=== PATIENT | female | born 1995 | race Caucasian/White ===

== ENCOUNTER → 2016-12-17 | Outpatient (CLI) | payer OTHER ==
[~2016-12-17] MED LIST: PRENTAB26 PO
== END | disposition home or self-care (01) ==
LOC: C.LABSPEC 15:00
PROVIDERS: ATTEND Obstetrics & Gynecology
DX: Z34.03 Encounter for supervision of normal first pregnancy, third trimester (principal)

== ENCOUNTER 2016-12-22 13:56 | Outpatient (CLI) | payer OTHER ==
--- NOTE | 2016-12-25 07:45 | EDITING REQUIRED CODING QUERY ---
DIAGNOSIS NEEDED To promote full compliance with coding requirements relating to patient care, physician participation is requested in all cases of medical biller coder uncertainty. Please assist us with the question(s) below: Coding Question: The patient received care in labor and delivery on 12/3116 as noted within the record. Please document the diagnosis that is being addressed by the medication/treatment. Provider Response: DIAGNOSIS:false labor WEEKS GESTATION: 37 weeks Thank you for your assistance, Deandra Kirkpatrick - Dip Brazier
== END 2016-12-22 16:07 | disposition home health service (06) ==
LOC: C.OPB 13:56 → C.LD 14:00 → C.OPB 16:07
PROVIDERS: ATTEND Obstetrics & Gynecology
DX: Z34.03 Encounter for supervision of normal first pregnancy, third trimester (principal)

== ENCOUNTER 2017-01-14 16:09 | Inpatient (IN) | payer OTHER ==
[~2017-01-14] VITALS: Ht 149.9 cm; Wt 79.1 kg
[2017-01-15] MEDS ORDERED: LACTATED RINGER'S 1000ML 1,000 ML IV PRN (08:09)
[2017-01-15] MEDS ORDERED: LACTATED RINGER'S 1000ML 1,000 ML IV SCH (08:09)
[2017-01-15] MEDS ORDERED: MISOPROSTOLTAB 50 MCG TAB PO ONE (08:15)
[2017-01-15 09:14] LABS: HEMATOCRIT 32.2 % (37-47); MEAN CORPUSCULAR HEMOGLOBIN 28.5 pg (25-34); MEAN CORPUSCULAR HGB CONC 33.5 g/dl (32-36); MEAN PLATELET VOLUME 10.7 fL (7.4-10.4); PLATELET COUNT 273 K/uL (130-400); RED BLOOD COUNT 3.79 M/uL (4.2-5.4); WHITE BLOOD COUNT 12.62 K/uL (4.8-10.8)
[2017-01-15] MEDS ORDERED: PRENTAB26 PO (09:58)
[2017-01-15 10:29] VITALS: Ht 149.9 cm; Wt 79.1 kg
[2017-01-15] MEDS ORDERED: BUPIVACAINE 0.25% 30 ML VIAL ONE (12:24)
[2017-01-15] MEDS ORDERED: EpHEDrine SULFATE INJ 50 MG/ML AMP ONE (12:24)
[2017-01-15] MEDS ORDERED: FENTANYL 2MCG/ML ROPIV 1.25MG/ML 100ML BAG EPI ONE (12:24)
[2017-01-15] MEDS ORDERED: FENTANYL CITRATE INJ 50 MCG/1 ML 2 ML VIAL ONE ×2 (12:25→13:34)
[2017-01-15] MEDS ORDERED: LACTATED RINGER'S 1000ML 500 ML IV PRN ×2 (13:37→13:53)
[2017-01-15] MEDS ORDERED: NALOXONE HCL INJ 1 MG in SODIUM CHLORIDE 0.9% 1000ML 1,000 ML IV PRN (13:37)
--- NOTE | 2017-01-15 13:40 | Anesthesiology Progress Note ---
Anesthesia Progress Note Date of Service Jan 15, 2017. Progress Notes Ms. Bergeron endorsed a childhood history of spina bifida. She stated it was "mild" and never required any sort of surgery. She denied any pre-existing neurological dysfunction and stated she had full muscle strength of her lower extremities and denied any gait disturbances. Risks and benefits of the epidural were discussed and she is aware of higher risk of dural puncture or possibly new neurological problem. She agreed and wished for epidural for control of pain during her labor and delivery.
[2017-01-15] MEDS ORDERED: FENTANYL 2MCG/ML ROPIV 1.25MG/ML 100ML BAG EPI PRN (13:45)
[2017-01-15] MEDS ORDERED: ONDANSETRON INJ 2 MG/ML 2 ML VIAL IV PRN (13:45)
[2017-01-15] MEDS ORDERED: EpHEDrine SULFATE INJ 50 MG/ML AMP IV PRN (13:45)
[2017-01-15] MEDS ORDERED: NALOXONE HCL 0.4 MG/1 ML VIAL/CARP IV PRN (13:45)
[2017-01-15] MEDS ORDERED: DiphenhydrAMINE HCL 50 MG/ML VIAL IV PRN (13:45)
[2017-01-15] MEDS ORDERED: NALBUPHINE HCL INJ 10 MG/ML AMP IV PRN (13:45)
[2017-01-15] MEDS ORDERED: OXYTOCIN 30 UNITS/500ML NSS IV PRN ×2 (14:00→17:45)
[2017-01-15] MEDS ORDERED: SILVER NITR/POTASSIUM NITRATE 10 APPLICATOR PACK ONE (16:42)
[2017-01-15] MEDS ORDERED: METHYLERGONOVINE MALEATE 0.2 MG/ML AMP ONE (16:57)
[2017-01-15] MEDS ORDERED: METHYLERGONOVINE MALEATE 0.2 MG/ML AMP IM ONE (17:45)
[2017-01-15] MEDS ORDERED: ACETAMINOPHEN/CODEINE 300/30MG TAB PO PRN ×2 (17:45)
[2017-01-15] MEDS ORDERED: LANOLIN OINT EXT PRN ×2 (17:45)
[2017-01-15] MEDS ORDERED: HYDROCORTISONE ACETATE 25 MG SUPP PR PRN (17:45)
[2017-01-15] MEDS ORDERED: SUPERCREAM 0.870 % 15GM JAR EXT PRN (17:45)
[2017-01-15] MEDS ORDERED: DIPHTHERIA/TETANUS/PERTUSSIS 0.5 ML SYR/VIAL IM. ONE (17:45)
[2017-01-15] MEDS ORDERED: OXYCODONE/ACETAMINOPHEN 5-325 TAB PO PRN (17:45)
[2017-01-15] MEDS ORDERED: BENZOCAINE 20% AER SPR 82.5 GM CAN EXT PRN (17:45)
[2017-01-15] MEDS: CEFOXITIN IV 2,000 MG in DEXTROSE 5% 50ML 50 ML IV SCH ×2 (18:45→23:35)
--- NOTE | 2017-01-15 19:04 | Anesthesia Procedure Note ---
Anesthesia Epidural Removal Nt Date & Time Jan 15, 2017 at 19:04 Vital Signs Pain Intensity: 6.0 Notes Mental Status: alert / awake / arousable, participated in evaluation Nausea / Vomiting: adequately controlled Pain: adequately controlled Airway Patency, RR, SpO2: stable & adequate BP & HR: stable & adequate Hydration State: stable & adequate Neuraxial Anesthesia: was administered, sensory block is resolving Anesthetic Complications: no major complications apparent, pt satisfied with anesthetic care Epidural: removed without complications, with tip intact
[2017-01-15] MEDS: DOCUSATE SODIUM 100 MG CAP PO SCH (20:49)
[2017-01-15] MEDS: IBUPROFEN 600 MG TAB PO PRN (20:49)
[2017-01-15] MEDS: ACETAMINOPHEN 325 MG TAB PO PRN (23:35)
[2017-01-16] VITALS: BP 115/69; PULSE 82; TEMP 36.7
--- NOTE | 2017-01-16 00:20 | DELIVERY SUMMARY ---
DATE OF OPERATION: 01/15/2017 This is a 21-year-old 1, para 1, who had the majority of her care in [place]. Her due date is 01/11/2017 and my first visit with her was on 12/17/2016. She was brought in for induction being over her expected date of confinement. Her blood type is O positive, rubella immune, strep screen negative. On the day of admission, she was placed on a monitor. She had good heart rate tracing. She was given Cytotec 5 mcg p.o. and with that she went into labor. When she was about 5-6 cm, she requested and received epidural anesthesia from which she obtained good pain relief. Membranes ruptured surgically. There was light meconium. She went to full dilatation, pushed out a live female infant in the MIKEL over an intact perineum in about 45 minutes. After delivery of the head, while I tried to suction through the mouth, I could not get my fingers through the end of the mouth. I then suctioned through the nose and went ahead and delivered the , clamped and then cut the cord. We immediately took the over to the warmer, where it was discovered that she had a fusion of the jaw to the upper palate. She had a fair amount of bleeding. I gave IV Pitocin and IM Methergine. She had a large sulcus laceration just to the left of the midline. I identified the top of the sulcus laceration and sewed it with a continuous interlocking suture of heavy Vicryl. This created relatively good hemostasis. I palpated the defect. It was quite large. I resewed the sulcus laceration for better approximation and hemostasis. I placed a quarter-inch drain into the defect and then sutured the perineum. I used an interrupted suture of heavy Vicryl to approximate the bulbocavernosus muscle. I used 3 interrupted sutures of heavy duty Vicryl to approximate the perineal body. The rectal sphincter was intact. After this, I used a running subcuticular suture to approximate the perineal skin edges and sewed the drain to the perineum with a loop of 2-0 Vicryl. Following this, I did a vag exam which revealed no sponges or hematoma formation and I did 2 rectal examinations to make sure that there were no stitches through the rectal mucosa. Following this, hemostasis was good. The patient tolerated the procedure well. I attest to the content of the Intraoperative Record and any orders documented therein. Any exception s are noted below.
[2017-01-16 03:40] VITALS: BP 101/66; PULSE 99; TEMP 36.4
[2017-01-16] MEDS: IBUPROFEN 600 MG TAB PO PRN ×2 (03:45→14:32)
[2017-01-16] MEDS: CEFOXITIN IV 2,000 MG in DEXTROSE 5% 50ML 50 ML IV SCH ×2 (06:36→12:18)
[2017-01-16] MEDS: ACETAMINOPHEN 325 MG TAB PO PRN (06:37)
[2017-01-16 07:45] VITALS: BP 113/73; PULSE 91; TEMP 36.5
[2017-01-16 07:53] LABS: HEMATOCRIT 27.4 % (37-47)
[2017-01-16] MEDS ORDERED: FERROUS SULFATE 325 MG TAB PO SCH (08:00)
[2017-01-16] MEDS ORDERED: PRENATAL VITAMIN TAB PO SCH (08:00)
[2017-01-16] MEDS: DOCUSATE SODIUM 100 MG CAP PO SCH (08:09)
--- NOTE | 2017-01-16 09:05 | Progress Note ---
Subjective Jan 16, 2017. Subjective conversation w/ patient Ambulation: ambulating normally Voiding: no voiding problems Passing Gas: Yes Diet Tolerance: Regular Diet Lochia: Small Review of Systems Constitutional: + fever Objective Vital Signs Date Time Temp Pulse Resp B/P (MAP) Pulse Ox O2 Delivery O2 Flow Rate FiO2 01/16/17 03:40 36.4 99 18 101/66 (78) Room Air 01/16/17 00:00 Room Air 01/16/17 00:00 36.7 82 18 115/69 (84) Room Air Physical Exam General Appearance: WELL-APPEARING Abdomen: non tender Fundus: Firm, Non-Tender Extremities: no pedal edema, no calf tenderness Laboratory Results Last 24 Hours Test 01/16/17 07:04 Hemoglobin 9.3 g/dL Hematocrit 27.4 % Assessment and Plan Post- Day#: 1 Continue Routine Care: Hgb 9.3 no symptoms
--- NOTE | 2017-01-16 09:08 | Discharge Instructions ---
Discharge Instructions Date of Service Jan 16, 2017. Admission Reason for Admission: Induction Discharge Discharge Diagnosis / Problem: large left sulcus tear post operative Hgb 9 Discharge Goals Goal(s): Routine recovery after delivery Activity Recommendations Activity Limitations: as noted below ACTIVITY RECOMMENDATIONS: * Gradual return to full activity over the next 2-3 weeks. * No lifting - nothing heavier than baby over the next 2-3 weeks. * Do not engage in vigorous exercise, sexual activity or sports until cleared by your physician. * Do not drive or operate any motorized equipment until cleared by your physician. * You may shower/bathe daily. DIET: Resume Previous Diet If Breast-feeding: * Increase caloric intake by 500 calories, eat 3 well balanced meals, 2 high protein snacks a day and drink 6-8 8oz. glasses of fluid per day. BREAST CARE: If you are not breast feeding: * Wear a supportive bra 24 hours a day for one to two weeks. * Avoid stimulating your breasts and nipples as much as possible during the first few weeks after delivery. * When taking a shower, have the warm water hit your back, not breasts. * When your breasts feel full, apply ice packs. Usually three to four times a day helps ease the discomfort. * Take a mild pain medication (Tylenol / Motrin) when you are uncomfortable. If breast feeding: * Use breast milk to lubricate nipples. Lansinoh cream may be used for sore nipples. You do not need to remove cream prior to breast feeding. If using a different brand of cream, check the label for directions regarding removal of cream prior to nursing. * Wear a supportive bra. * If having problems with breasts or breast feeding, call a domestic travel consultant or your health care provider. OVER THE COUNTER MEDICATION: * For discomfort or pain, you may use Acetaminophen (Tylenol), Ibuprofen (Advil ), or Naproxen (Aleve) following the package directions. * For constipation you may use Colace following the package directions. SPECIAL CARE INSTRUCTIONS: * Vaginal rest (no tampons, douching, intercourse) until after doctor 's visit. * control as discussed with doctor. * Verbalizes understanding of car seat law as reviewed with patient nursing. * Car Seat hand-out given and reviewed with patient by nursing. * Shaken baby information reviewed with patient by nursing. Call you doctor if: * Temperature greater than or equal to 100.4 degrees F or 38.0 degrees C. Take your temperature twice daily for a week. * Bleeding becomes heavier than the heaviest part of your period - saturating a sanitary pad within an hour. * Passing large clots. * Bleeding has a foul smelling odor. * Signs and symptoms of phlebitis: leg pain, warm, red or swollen area on leg. * "Baby Blues" lasting longer than two weeks. ++ If you have had a and incision has increased pain, redness, swelling, presence of any drainage, or if the incision starts to open up. If you have any questions or concerns, call your health care practitioner at [phone]. FOLLOW-UP VISIT: Please call the office at to schedule a 6 week examination. . Instructions / Follow-Up Instructions / Follow-Up ACTIVITY RECOMMENDATIONS: * Gradual return to full activity over the next 2-3 weeks. * No lifting - nothing heavier than baby over the next 2-3 weeks. * Do not engage in vigorous exercise, sexual activity or sports until cleared by your physician. * Do not drive or operate any motorized equipment until cleared by your physician. * You may shower/bathe daily. DIET: Resume Previous Diet If Breast-feeding: * Increase caloric intake by 500 calories, eat 3 well balanced meals, 2 high protein snacks a day and drink 6-8 8oz. glasses of fluid per day. BREAST CARE: If you are not breast feeding: * Wear a supportive bra 24 hours a day for one to two weeks. * Avoid stimulating your breasts and nipples as much as possible during the first few weeks after delivery. * When taking a shower, have the warm water hit your back, not breasts. * When your breasts feel full, apply ice packs. Usually three to four times a day helps ease the discomfort. * Take a mild pain medication (Tylenol / Motrin) when you are uncomfortable. If breast feeding: * Use breast milk to lubricate nipples. Lansinoh cream may be used for sore nipples. You do not need to remove cream prior to breast feeding. If using a different brand of cream, check the label for directions regarding removal of cream prior to nursing. * Wear a supportive bra. * If having problems with breasts or breast feeding, call a domestic travel consultant or your health care provider. OVER THE COUNTER MEDICATION: * For discomfort or pain, you may use Acetaminophen (Tylenol), Ibuprofen (Advil ), or Naproxen (Aleve) following the package directions. * For constipation you may use Colace following the package directions. SPECIAL CARE INSTRUCTIONS: * Vaginal rest (no tampons, douching, intercourse) until after doctor 's visit. * control as discussed with doctor. * Verbalizes understanding of car seat law as reviewed with patient nursing. * Car Seat hand-out given and reviewed with patient by nursing. * Shaken baby information reviewed with patient by nursing. Call you doctor if: * Temperature greater than or equal to 100.4 degrees F or 38.0 degrees C. Take your temperature twice daily for a week. * Bleeding becomes heavier than the heaviest part of your period - saturating a sanitary pad within an hour. * Passing large clots. * Bleeding has a foul smelling odor. * Signs and symptoms of phlebitis: leg pain, warm, red or swollen area on leg. * "Baby Blues" lasting longer than two weeks. ++ If you have had a and incision has increased pain, redness, swelling, presence of any drainage, or if the incision starts to open up. If you have any questions or concerns, call your health care practitioner at [phone]. FOLLOW-UP VISIT: Please call the office at to schedule a 6 week examination. Current Hospital Diet Patient's current hospital diet: Regular Diet Discharge Diet Recommended Diet: Regular Diet Pending Studies Studies pending at discharge: no Medical Emergencies . Who to Call and When: Medical Emergencies: If at any time you feel your situation is an emergency, please call 911 immediately. . Non-Emergent Contact Non-Emergency issues call your: [employer] Call Non-Emergent contact if: temperature is above 100.5 . . "Provider Documentation" section prepared by Yariel Christian. . VTE Core Measure Inpt VTE Proph given/why not?: Treatment not indicated
[2017-01-16 14:30] VITALS: BP_DIAS 73; PULSE 91; TEMP 36.5
[2017-01-16] MEDS ORDERED: BISACODYL 5 MG TABEC PO SCH (20:00)
[2017-01-17] MEDS ORDERED: BISACODYL 10 MG SUPP PR PRN (07:00)
[2017-01-17] MEDS ORDERED: INFLUENZA VIRUS QUAD VACCINE 0.5 ML SYR IM. ONE (09:00)
[2017-01-17] MEDS ORDERED: INFLUENZA ADMINISTRATION CHARGE ONE (09:00)
== END 2017-01-16 15:10 | disposition home or self-care (01) | DRG 775 ==
LOC: C.LD 01-15 07:05 → C.OBG 01-15 20:16
PROVIDERS: ADMIT Obstetrics & Gynecology; ATTEND Obstetrics & Gynecology
PROC: 10E0XZZ Delivery of Products of Conception, External Approach (ICD-10-PCS; principal; 2017-01-15)
PROC: 0HQ9XZZ Repair Perineum Skin, External Approach (ICD-10-PCS; principal; 2017-01-15)
PROC: 3E0P7GC Introduction of Other Therapeutic Substance into Female Reproductive, Via Natural or Artificial Opening (ICD-10-PCS; 2017-01-15)
DX: O48.0 Post-term pregnancy (principal); O70.0 First degree perineal laceration during delivery; Z3A.40 40 weeks gestation of pregnancy; Z37.0 Single live birth